=== PATIENT | male | born 1940 ===

== ENCOUNTER 2018-01-09 13:15 | Inpatient (IN) | payer OTHER ==
[~2018-01-09] VITALS: Ht 162.6 cm; Wt 72.1 kg
[2018-01-09] MEDS ORDERED: COZAAR100 MG PO (16:27)
[2018-01-09] MEDS ORDERED: GLIMEPIRIDE2 MG PO (16:27)
[2018-01-09] MEDS ORDERED: OMEPRAZOLE20 M1 PO (16:27)
[2018-01-09] MEDS ORDERED: ZOCOR20 MG PO (16:27)
[2018-01-17] MEDS ORDERED: TAMS0.4C PO (10:51)
[2018-01-17] MEDS ORDERED: ULTRACET PO (10:51)
[2018-01-17] MEDS ORDERED: MACROBID 100 M100 MG PO (10:51)
[2018-01-17] MEDS ORDERED: PROSCAR5 MG PO (10:51)
[2018-01-17] MEDS ORDERED: INTESTINEX680 M1 PO (10:51)
[2018-01-17] MEDS ORDERED: OMEPRAZOLE20 M1 PO (10:51)
== END 2018-01-17 17:11 | disposition home or self-care (01) | DRG 331 ==
LOC: SURG 01-12 13:15 → O/R 01-13 06:57 → SURH 01-13 06:57 → SURG 01-13 13:15 → SURH 01-13 14:03 → SURG 01-13 15:00 → SURH 01-17 17:11
PROVIDERS: Surgery
PROC: 07TC4ZZ Resection of Pelvis Lymphatic, Percutaneous Endoscopic Approach (ICD-10-PCS; 2018-01-13)
PROC: 0DJD8ZZ Inspection of Lower Intestinal Tract, Via Natural or Artificial Opening Endoscopic (ICD-10-PCS; 2018-01-13)
PROC: 0DTN4ZZ Resection of Sigmoid Colon, Percutaneous Endoscopic Approach (ICD-10-PCS; principal; 2018-01-13 15:00)
PROC: 0T9B70Z Drainage of Bladder with Drainage Device, Via Natural or Artificial Opening (ICD-10-PCS; 2018-01-16)
DX: D12.5 Benign neoplasm of sigmoid colon (principal); R59.0 Localized enlarged lymph nodes; I10 Essential (primary) hypertension; E11.9 Type 2 diabetes mellitus without complications; N40.1 Benign prostatic hyperplasia with lower urinary tract symptoms; R33.8 Other retention of urine

== ENCOUNTER 2018-01-12 11:34 | Day surgery (SDC) | payer OTHER ==
[~2018-01-12 11:34] MED LIST: COZAAR100 MG PO; GLIMEPIRIDE2 MG PO; OMEPRAZOLE20 M1 PO; ZOCOR20 MG PO
== END 2018-01-12 15:20 | disposition home or self-care (01) ==
LOC: AMB-ENDOS 11:34
DX: C18.7 Malignant neoplasm of sigmoid colon (principal)